=== PATIENT | female | born 1955 | race American Indian/Alaskan Native ===

== ENCOUNTER 2017-07-06 17:57 | Inpatient (IN) | payer OTHER ==
[~2017-07-06] VITALS: Ht 160 cm; Wt 53.5 kg
[2017-07-06] MEDS ORDERED: PREDNISONE10 MG PO (18:17)
--- NOTE | 2017-07-06 21:30 | NUR ---
ADMIT TO CCU PER STRETCHER. PT IS ALERT BUT TIRED. C/O [place] 06/24. DR ALBERTS HERE. PT ABLE TO AMB FROM STRETCHER TO BED. WITH PT.
--- NOTE | 2017-07-06 23:15 | NUR ---
BESIDE US DONE, DR ALBERTS AWARE. 16F [place] INSERTED WITHOUT PROBLEM DR ALBERTS AWARE OF BP AND URINE OUTPUT. PT STATES [place] IS BETTER, WAS GIVEN TYLENOL EARLIER. ABLE TO TOLERATE GASTROGRAFIN WITH APPLEJUICE.
--- NOTE | 2017-07-06 23:45 | NUR ---
[facility] TO ROOM FROM CT. MARIO WELL.
--- NOTE | 2017-07-06 23:53 | EKG ---
[facility] [address] [place] [address] Signed Sinus tachycardia Left axis deviation Abnormal ECG No previous ECGs available Confirmed by NATALY ALBERTS MD ([id number] on 07/06/2017 11:53:37 PM Electronically Signed By: NATALY ALBERTS MD 07/06/17 2353 PATIENT NAME: CAROL FATIMA Electrocardiogram DATE OF : 57 PHYSICIAN: NATALY ALBERTS MD REPORT #: [id number] REPORT IS CONFIDENTIAL AND NOT TO BE RELEASED WITHOUT AUTHORIZATION
--- NOTE | 2017-07-07 00:31 | NUR ---
DR ALBERTS NOTIFIED OF CT RESULTS AND UPDATED ON PT. ORDERES RECIEVED. 500ML BOLUS STARTED.
--- NOTE | 2017-07-07 04:12 | NUR ---
AWAKENED FROM SOUND SLEEP FOR ASSESSMENT. SO SPEC C/O UT STILL DOESN'T FEEL WELL,MOVES SLOWLY. URINE OUTPUT IMPROVED.
--- NOTE | 2017-07-07 04:24 | NUR ---
DR ALBERTS CALLED UNIT RE PT, GIVEN UPDATE.
--- NOTE | 2017-07-07 06:43 | NUR ---
PT SLEEPING OFF AND ON. PT FEELS LIKE SHE IS HAVING STOOL. CHECKED NO STOOL NOTED. POSS CATH MAKES HER FEEL LIKE SHE IS HAVING LOOSE STOOLS. DR ALBERTS GIVEN UPDATE.
--- NOTE | 2017-07-07 09:12 | NUR ---
PT C/O DRY MOUTH PINK SPONGES GIVEN TO PT AT THIS TIME, ALSO [employer] SET UP TECHNICIAN HERE TO COMPLETE ORDER.
--- NOTE | 2017-07-07 09:28 | NUR ---
Vancomycin per pharmacy. 1250mg iv loading dose, then 750mg iv q 12 hr, next dose due at 1200 today. Draw for vancomycin trough level 07/08 @ 1130 (just prior to 4th dose. Pharmacy will monitor and adjust dose/frequency as indicated
--- NOTE | 2017-07-07 10:36 | NUR ---
UA SENT TO LAB AT THIS TIME COLLECTED VIA CATHETER.
--- NOTE | 2017-07-07 11:22 | NUR ---
PT HAS NO PAIN AT THIS TIME, FAMILY HAS BEEN AT BEDSIDE, SOME QUESTIONS ANSWERED, BUT STAFF DOES NOT HAVE ALL THE ANSWERES THEY ARE ASKING ABOUT. EXPLAINED THAT SHE IS GOING TO A HIGHER LEVEL OF CARE AND FOR FURTHER TESTING TO SEE WHAT IS GOING ON WITH HER.
--- NOTE | 2017-07-07 12:20 | NUR ---
REPORT GIVEN TO AMBULANCE CREW ALL QUESTIONS ANSWERED AT THIS TIME, ALL OF PT ABX'S SENT WITH PT AND THE AMBULANCE CREW WILL GIVEN THEM DIRECTED. ALL OF PATIENTS BELONGINGS SENT WITH PATIENT. DIRECTIONS GIVEN TO FAMILY WITH PHONE NUMBER AND ROOM NUMBER WRITEN ON FRONT OF DIRECTIONS. 3 COPIES OF DIRECTIONS PROVIDED. REPORT CALLED TO [facility] ALL QUESTIONS ANSWERED.
[2017-07-25] MEDS ORDERED: POTASSIUM CHLO20 ME1 PO (03:14)
[2017-07-25] MEDS ORDERED: NYSTATIN100000 UN1 PO (03:20)
== END 2017-07-07 12:15 | disposition short-term general hospital (02) | DRG 872 ==
LOC: ED 17:57 → CCU 20:20
PROVIDERS: ADMIT Internal Medicine
DX: A41.9 Sepsis, unspecified organism (principal); E27.40 Unspecified adrenocortical insufficiency; J84.9 Interstitial pulmonary disease, unspecified; K80.00 Calculus of gallbladder with acute cholecystitis without obstruction; N17.9 Acute kidney failure, unspecified; E87.1 Hypo-osmolality and hyponatremia; E87.2 Acidosis; R65.10 Systemic inflammatory response syndrome (SIRS) of non-infectious origin without acute organ dysfunction; D37.6 Neoplasm of uncertain behavior of liver, gallbladder and bile ducts; D73.89 Other diseases of spleen; E86.1 Hypovolemia; D69.6 Thrombocytopenia, unspecified; E16.2 Hypoglycemia, unspecified; E83.42 Hypomagnesemia; D86.0 Sarcoidosis of lung
CPT/HCPCS: 36415; 71020; 74177; 76705; 80053; 81001; 83605; 83735; 83930; 83935; 84439; 84443; 84484; 84550; 85025; 87040; 93005; 93010; 93306; 96361; 96374; 96375; 99285; J1720; J2405; J2543; J3370; J3475; J7030; J7060; J7120; Q9967

== ENCOUNTER 2017-07-31 16:39 | Emergency (ER) | payer OTHER ==
[~2017-07-31] VITALS: Ht 157.5 cm; Wt 50.8 kg
[~2017-07-31 16:39] MED LIST: NYSTATIN100000 UN1 PO; POTASSIUM CHLO20 ME1 PO; PREDNISONE10 MG PO
== END 2017-07-31 21:15 | disposition short-term general hospital (02) ==
LOC: ED 16:39
PROC: 0T9B70Z Drainage of Bladder with Drainage Device, Via Natural or Artificial Opening (ICD-10-PCS; principal; 2017-07-31)
DX: G25.1 Drug-induced tremor (principal); T45.1X5A Adverse effect of antineoplastic and immunosuppressive drugs, initial encounter; Z79.899 Other long term (current) drug therapy
CPT/HCPCS: 36415; 51701; 71010; 80053; 81001; 83605; 83735; 85025; 87040; 96365; 96366; 96367; 96368; 96375; 99285; J2270; J2405; J2543; J2550; J3370; J3475; J3480; J7060; J7120